=== PATIENT | female | born 1940 | race Caucasian/White ===

== ENCOUNTER 2020-07-09 11:56 | Outpatient (CLI) | payer MEDICARE ==
[2020-07-09 12:12] LABS: BASOPHILS % (AUTO) 0.3 %; EOSINOPHILS % (AUTO) 0.3 %; HGB - HEMOGLOBIN 16.3 g/dL (12.0-16.0); LYMPHOCYTES # (AUTO) 1.8 10^3/uL (1.5-3.5); LYMPHOCYTES % (AUTO) 14.8 %; MEAN CORPUSCULAR HEMOGLOBIN 31.3 pg (27.0-31.0); MEAN CORPUSCULAR HGB CONC 36.4 g/dL (32.0-36.0); MEAN PLATELET VOLUME 9.8 fL (7.9-10.8); NEUTROPHILS # (AUTO) 8.9 10^3/uL (1.5-6.6); NEUTROPHILS % (AUTO) 75.1 %; PLT - PLATELET COUNT 211 10^3/uL (130-450); RED BLOOD COUNT 5.21 10^6/uL (4.20-5.40); WHITE BLOOD COUNT 11.9 x10^3/uL (4.8-10.8)
== END 2020-07-09 11:57 | disposition home or self-care (01) ==
LOC: LAB 11:56
PROVIDERS: ATTEND Internal Medicine Gastroenterology
DX: K92.1 Melena (principal)
CPT/HCPCS: 36415; 85025